=== PATIENT | female | born 1965 | race Caucasian/White ===

== ENCOUNTER 2018-06-04 07:59 | Day surgery (SDC) | payer BC ==
[~2018-06-04] VITALS: Ht 160 cm; Wt 106.8 kg
[~2018-06-04 07:59] MED LIST: AMLO10TA5 PO; ASPI81TA85 PO; BACITRACIN PWD 50,000 UNITS VIAL As Ordered ONE; BUPIVACAINE HCL 0.5% 30 ML VIAL As Ordered ONE; CELE100C PO; FLUO10CA8 PO; FLUO20CA8 PO; HUMI40KI SC; HYDR-3363 PO; HYDR200T3 PO; LIDOCAINE 2% MDV 20 ML VIAL As Ordered ONE; LR 1,000 ML IV ONE; METO1TAB87 PO; NEOSPORIN GU IRRIG 20 ML VIAL As Ordered ONE; PROTPAK PO; VANCOMYCIN HCL 1,000 MG, VIAL MATE ADAPTER 1 EACH in D5W 250 ML IV ONE; VITA50005 PO; dexameTHASONE 4 MG/ML 1ML VIAL (J1100) As Ordered ONE
[2018-06-04] MEDS ORDERED: dexameTHASONE 4 MG/ML 1ML VIAL (J1100) As Ordered ONE (08:07)
[2018-06-04] MEDS ORDERED: LIDOCAINE 2% INJ 100 MG/5 ML SDV (FOR ANES.) As Ordered ONE (08:07)
[2018-06-04] MEDS ORDERED: fentaNYL 100 MCG/2 ML INJECTION (J3010) As Ordered ONE (08:07)
[2018-06-04] MEDS ORDERED: PROPOFOL 500 MG/50 ML VIAL As Ordered ONE (08:07)
[2018-06-04] MEDS ORDERED: MIDAZOLAM INJ 2 MG/2 ML VIAL (J2250) As Ordered ONE (08:07)
[2018-06-04] MEDS ORDERED: ONDANSETRON 4MG/2ML VIAL (J2405) As Ordered ONE (08:07)
[2018-06-04] MEDS ORDERED: ePHEDrine SULFATE 25 MG/5 ML(5MG/ML) SYRINGE As Ordered ONE (10:52)
[2018-06-04] MEDS ORDERED: ONDANSETRON 4MG/2ML VIAL (J2405) IV PRN (12:00)
[2018-06-04] MEDS ORDERED: LR 1,000 ML IV SCH (12:00)
[2018-06-04] MEDS ORDERED: METOCLOPRAMIDE INJ 10MG/2ML VIAL (J2765) IV PRN (12:00)
[2018-06-04] MEDS ORDERED: fentaNYL 100 MCG/2 ML INJECTION (J3010) IV PRN (12:00)
[2018-06-04] MEDS ORDERED: PERCOCET 5MG/325MG TAB PO PRN (12:00)
[2018-06-04 12:10] VITALS: BP 130/74
--- NOTE | 2018-06-04 13:11 | REP ---
LEFT FOOT, THREE VIEWS: HISTORY: Hammertoe 2nd digit. The patient is status post arthroplasty of the 2nd digit and osteotomy of the head of the 2nd metatarsal. Metal hardware is present. There is no acute fracture or dislocation. The joint spaces are normal in appearance. IMPRESSION: Postoperative change, as described above. There is anatomic alignment. Electronically Signed by Izaiah Dent MD 06/04/2018 01:13 P
--- NOTE | 2018-06-05 10:24 | RO ---
DATE OF PROCEDURE: 06/04/2018 PREOPERATIVE DIAGNOSIS: Hammertoe deformity 2nd toe left foot, long 2nd metatarsal left foot. SURGEON: Dr. Junior Breaux DPM. STATIONARY STEAM ENGINEER: None. ANESTHESIA: Local MAC. IRRIGATION: Dilute Bacitracin, neomycin and polymyxin B solution. PROCEDURES PERFORMED: 1. Proximal interphalangeal joint arthroplasty with external wire fixation 0.045 times one 2nd toe left foot. 2. Shortening 2nd metatarsal osteotomy with internal screw fixation, 2.4 mm x 12 mm headed cannulated screw left foot. HEMOSTASIS: Ankle pneumatic tourniquet at 200 mmHg for 25 minutes. DESCRIPTION OF OPERATION: On 06/04/2018 this 53-year-old white female was taken from her hospital room to the operating room and placed on the operating room table in the supine position. Following the induction of IV sedation and local regional anesthesia the left lower extremity was prepped and draped in the usual fashion. Attention was directed to the patient's 2nd toe where the following procedure was performed: PROXIMAL INTERPHALANGEAL JOINT ARTHROPLASTY 2ND TOE LEFT FOOT: Attention was directed to the patient's 2nd toe. There is noted to be a linear cicatrix over the 2nd toe. An incision was placed right through the cicatrix measuring approximately 2 cm in length. The incision was deepened to the subcutaneous tissues and all crossing contributories were identified, underscored and electrocoagulated. Dissection was carried down to the extensor tendon where a transverse tenotomy and capsulotomy was performed. The extensor tendon was retracted in a proximal direction. There was a malunion at the proximal interphalangeal joint. This was dissected free and the area of the malunion was osteotomized from dorsal to plantar through the union site and through the area of the cartilage of the base of the middle phalanx. Utilizing a Ade wire, the wire was driven through the middle and distal phalanx and retrograde into the proximal phalanx. The 2nd metatarsal was noted to be in a long position therefore the following procedure was performed: SHORTENING 2ND METATARSAL OSTEOTOMY AND INTERNAL SCREW FIXATION, 2.4 MM TIMES 12 MM TIMES ONE LEFT FOOT: Attention was direct to the patient's foot and the incision was lengthened in a Z-type fashion across the metatarsal phalangeal joint, transverse capsulotomy was performed to the metatarsal phalangeal joint and the joint was entered. A Vazquez osteotomy was then performed parallel to the surface of the foot and the capital fragment was shortened approximately 2 mm and transposed in a medial direction and fixated with a 2.4 x 12 mm cannulated screw. The medial aspect of the 2nd metatarsal phalangeal joint was released and the lateral side of the 2nd metatarsal phalangeal joint was reefed with 2-0 Monocryl in a simple interrupted type fashion. The wound was flushed with copious amounts of dilate bacitracin, neomycin and polymyxin B solution. The extensor tendon was coapted and maintained utilizing 4-0 braided Nylon loop suture with a 4-stranded Noriega repair. Subcutaneous tissues were coapted and maintained using 4-0 Monocryl in a simple interrupted type fashion. Skin was coapted and maintained using 4-0 Prolene in a simple interrupted and horizontal mattress type fashion. Following the completion of the surgical procedure 4 mg of Dexamethasone sodium phosphate was instilled proximal surgical site. Attention was directed to bandaging where a sterile compressive bandage was applied consisting of Adaptic 4x4, 4x4 splints, Kerlix and Coban. Ankle pneumatic tourniquet was rapidly deflated and instantaneous capillary filling time was noted in digits in 1-5 of the patient's left foot. After having apparently tolerating the procedure well was taken from the OR to the recovery room for further monitoring by the anesthesia department. Postoperative instruction upon discharge.
== END 2018-06-04 12:48 | disposition home or self-care (01) ==
LOC: M SDC 07:59
PROVIDERS: ATTEND Podiatrist
DX: M20.42 Other hammer toe(s) (acquired), left foot (principal); M20.5X2 Other deformities of toe(s) (acquired), left foot; M79.672 Pain in left foot; I10 Essential (primary) hypertension; K21.9 Gastro-esophageal reflux disease without esophagitis; Z79.899 Other long term (current) drug therapy; Z88.0 Allergy status to penicillin; Z88.5 Allergy status to narcotic agent
CPT/HCPCS: 28285; 28308; 73630; 88300; C1713; J1100; J2250; J2405; J3010; J3370

== ENCOUNTER 2018-07-14 11:25 | Emergency (ER) | payer BC ==
[~2018-07-14] VITALS: Ht 160 cm; Wt 108.8 kg
[~2018-07-14 11:25] MED LIST changes: -BACITRACIN PWD 50,000 UNITS VIAL As Ordered ONE; -BUPIVACAINE HCL 0.5% 30 ML VIAL As Ordered ONE; -LIDOCAINE 2% MDV 20 ML VIAL As Ordered ONE; -LR 1,000 ML IV ONE; -NEOSPORIN GU IRRIG 20 ML VIAL As Ordered ONE; -VANCOMYCIN HCL 1,000 MG, VIAL MATE ADAPTER 1 EACH in D5W 250 ML IV ONE; -dexameTHASONE 4 MG/ML 1ML VIAL (J1100) As Ordered ONE
[2018-07-14] MEDS ORDERED: KEFL500C17 PO (11:34)
[2018-07-14] MEDS ORDERED: NS 1,000 ML IV ONE (12:00)
[2018-07-14 12:30] LABS: BASO % 0.9 % (0.0-1.0); EOS # 0.3 10^3/uL (0.0-0.50); EOS % 7.9 % (0.0-3.0); HEMATOCRIT 40.7 % (36.0-47.0); HEMOGLOBIN 13.2 g/dl (12.0-15.5); LYMPH % 46.7 % (24.0-44.0); MEAN CORPUSCULAR HEMOGLOBIN 28.8 pg (27.0-33.0); MEAN CORPUSCULAR HGB CONC 32.4 g/dl (32.0-36.5); MEAN CORPUSCULAR VOLUME 88.7 fl (80.0-96.0); MONO # 0.5 10^3/uL (0.0-0.8); MONO % 11.3 % (0.0-5.0); NEUTROPHILS # 1.4 10^3/uL (1.8-7.7); NEUTROPHILS % 33.2 % (36.0-66.0); PLATELET COUNT, AUTOMATED 193 10^3/uL (150-450); RED BLOOD COUNT 4.59 10^6/uL (4.00-5.40); WHITE BLOOD COUNT 4.3 10^3/uL (4.0-10.0)
--- NOTE | 2018-07-14 12:35 | REP ---
LEFT FOOT, FOUR VIEWS: HISTORY: Erythema. COMPARISON: 06/04/2018 The patient is status post osteotomy of the second metatarsal. A metal pin is present. The patient is status post removal of a pin from the second digit and resection of the distal 2nd proximal phalange. There is no acute fracture or dislocation. There is minimal narrowing of the 1st metatarsal joint space. IMPRESSION: There is no acute fracture or dislocation. Electronically Signed by Izaiah Dent MD 07/14/2018 12:38 P
[2018-07-14 12:50] LABS: BLOOD UREA NITROGEN 21 MG/DL (7-18); C REACTIVE PROTEIN QUANTITATIV < 0.30 MG/DL (0.00-0.30); CALCIUM LEVEL 8.3 MG/DL (8.5-10.1); CARBON DIOXIDE LEVEL 23 MEQ/L (21-32); CHLORIDE LEVEL 116 MEQ/L (98-107); CREATININE FOR GFR 0.97 MG/DL (0.55-1.30); GLOMERULAR FILTRATION RATE > 60.0 (>51); GLUCOSE, FASTING 83 MG/DL (70-100); POTASSIUM SERUM 4.3 MEQ/L (3.5-5.1); SODIUM LEVEL 143 MEQ/L (136-145)
[2018-07-14 13:20] LABS: ERYTHROCYTE SEDIMENTATION RATE 6 mm/hr (0-30)
[2018-07-14] MEDS ORDERED: VANCOMYCIN HCL 1,000 MG, VIAL MATE ADAPTER 1 EACH in D5W 250 ML IV ONE (13:30)
[2018-07-14] MEDS ORDERED: BACT800T5 PO (14:02)
[2018-07-14 15:16] VITALS: BP 137/75
== END 2018-07-14 15:23 | disposition home or self-care (01) ==
LOC: M ED 11:25
DX: T81.9XXA Unspecified complication of procedure, initial encounter (principal); Y92.9 Unspecified place or not applicable; Y93.9 Activity, unspecified; I10 Essential (primary) hypertension; R51 Headache; G47.30 Sleep apnea, unspecified; F41.9 Anxiety disorder, unspecified; Z79.82 Long term (current) use of aspirin; Z79.899 Other long term (current) drug therapy; Z88.0 Allergy status to penicillin; Z88.5 Allergy status to narcotic agent
CPT/HCPCS: 73630; 80048; 83605; 85025; 85652; 86140; 87040; 87070; 87077; 87186; 87205; 96365; 96366; 99284; J3370

== ENCOUNTER 2019-09-29 08:51 | Day surgery (SDC) | payer BC ==
[~2019-09-29] VITALS: Ht 160 cm; Wt 108.1 kg
[~2019-09-29 08:51] MED LIST changes: -AMLO10TA5 PO; +AMLO1TAB25 PO; -ASPI81TA85 PO; +ASPI81TA86 PO; +BACT800T5 PO; +COSE1INJ SC; +CYCL-707 PO; +FLUO10CA16 PO; -FLUO10CA8 PO; +FLUO20CA20 PO; -FLUO20CA8 PO; +FOLI1TAB11 PO; +FURO40TA2 PO; +GABA600T4 PO; +KEFL500C17 PO; +LIDOCAINE 2% 100MG/5ML SDV (FOR ANES.) As Ordered ONE; +NS 1,000 ML IV ONE; +POTA1TAB14 PO; +propofoL 200 MG/20 ML VIAL As Ordered ONE
[2019-09-29] MEDS ORDERED: propofoL 200 MG/20 ML VIAL As Ordered ONE (09:57)
--- NOTE | 2019-09-29 10:01 | ROOR ---
Patient Name: Nathaniel Mcgraw Procedure Date: 09/29/2019 9:31 AM Date of : 1965 Age: 54 Room: [facility] Gender: Female Note Status: Finalized Procedure: Colonoscopy Indications: High risk colon cancer surveillance: Personal history of colonic polyps Providers: Elmo Huber Jr, MD Referring MD: Jesus Wilson MD Requesting Provider: Medicines: Propofol per Anesthesia Complications: No immediate complications. Procedure: Pre-Anesthesia Assessment: - Prior to the procedure, a History and Physical was performed, and patient medications and allergies were reviewed. The patient is competent. The risks and benefits of the procedure and the sedation options and risks were discussed with the patient. All questions were answered and informed consent was obtained. Patient identification and proposed procedure were verified by the physician and the nurse in the pre-procedure area and in the procedure room. Mental Status Examination: alert and oriented. Airway Examination: normal oropharyngeal airway and neck mobility. Respiratory Examination: clear to auscultation. CV Examination: normal. ASA Grade Assessment: II - A patient with mild systemic disease. After reviewing the risks and benefits, the patient was deemed in satisfactory condition to undergo the procedure. The anesthesia plan was to use moderate sedation / analgesia (conscious sedation). Immediately prior to administration of medications, the patient was re-assessed for adequacy to receive sedatives. The heart rate, respiratory rate, oxygen saturations, blood pressure, adequacy of pulmonary ventilation, and response to care were monitored throughout the procedure. The physical status of the patient was re-assessed after the procedure. The Colonoscope was introduced through the anus and advanced to the cecum, identified by appendiceal orifice and ileocecal valve. The colonoscopy was performed without difficulty. The patient tolerated the procedure well. The quality of the bowel preparation was adequate. Findings: The rectum, recto-sigmoid colon, sigmoid colon, descending colon, transverse colon, ascending colon, cecum, appendiceal orifice and ileocecal valve appeared normal. Impression: - The rectum, recto-sigmoid colon, sigmoid colon, descending colon, transverse colon, ascending colon, cecum, appendiceal orifice and ileocecal valve are normal. - No specimens collected. Recommendation: - Discharge patient to home (ambulatory). - Repeat colonoscopy in 10 years for screening purposes. Elmo Huber MD Elmo Huber Jr, MD 09/29/2019 10:00:40 AM Electronically signed by Elmo Huber Jr, MD Number of Addenda: 0 Note Initiated On: 09/29/2019 9:31 AM Estimated Blood Loss: Estimated blood loss: none.
[2019-09-29 10:43] VITALS: BP 111/53
== END 2019-09-29 10:37 | disposition home or self-care (01) ==
LOC: M OPP 08:51
PROVIDERS: ATTEND Surgery
DX: Z12.11 Encounter for screening for malignant neoplasm of colon (principal); Z86.010 Personal history of colon polyps; G47.30 Sleep apnea, unspecified; K21.9 Gastro-esophageal reflux disease without esophagitis; M79.7 Fibromyalgia; Z79.82 Long term (current) use of aspirin; Z79.899 Other long term (current) drug therapy; Z88.0 Allergy status to penicillin; Z88.5 Allergy status to narcotic agent

== ENCOUNTER 2020-03-24 09:34 | Emergency (ER) | payer BC ==
[~2020-03-24] VITALS: Ht 157.5 cm; Wt 109.9 kg
[~2020-03-24 09:34] MED LIST changes: -LIDOCAINE 2% 100MG/5ML SDV (FOR ANES.) As Ordered ONE; -NS 1,000 ML IV ONE; -propofoL 200 MG/20 ML VIAL As Ordered ONE
[2020-03-24 10:53] LABS: BASO % 0.7 % (0.0-1.0); EOS # 0.2 10^3/uL (0.0-0.5); EOS % 6.1 % (0.0-3.0); HEMATOCRIT 37.1 % (36.0-47.0); HEMOGLOBIN 11.2 g/dl (12.0-15.5); LYMPH # 1.3 10^3/uL (1.5-5.0); LYMPH % 43.6 % (24.0-44.0); MEAN CORPUSCULAR HEMOGLOBIN 26.2 pg (27.0-33.0); MEAN CORPUSCULAR HGB CONC 30.2 g/dl (32.0-36.5); MEAN CORPUSCULAR VOLUME 86.7 fl (80.0-96.0); MONO # 0.5 10^3/uL (0.0-0.8); MONO % 17.6 % (0.0-5.0); NEUTROPHILS % 31.7 % (36.0-66.0); PLATELET COUNT, AUTOMATED 186 10^3/uL (150-450); RED BLOOD COUNT 4.28 10^6/uL (4.00-5.40)
[2020-03-24 11:19] LABS: CALCIUM LEVEL 8.7 MG/DL (8.5-10.1); CREATININE FOR GFR 1.08 MG/DL (0.55-1.30); GLOMERULAR FILTRATION RATE 56.1 (>51); POTASSIUM SERUM 5.3 MEQ/L (3.5-5.1)
[2020-03-24 11:24] LABS: NEUTROPHILS # 0.9 10^3/uL (1.5-8.5)
--- NOTE | 2020-03-24 11:33 | REP ---
INDICATION: elevate cr, recurrent uti COMPARISON: 04/13/2007 TECHNIQUE: Real time robles scale ultrasound examination using curved array transducer. FINDINGS: The kidneys are normal in reniform shape and demonstrate increased central sinus fat suggesting chronic renal disease without hydronephrosis, nephrolithiasis, cystic or renal mass lesion. No perinephric fluid collection. Right kidney measures 9.6 x 4.2 x 4.8 cm. Left kidney measures 10.2 x 3.8 x 4.9 cm. Bladder is collapsed. IMPRESSION: 1. Findings suggesting chronic renal disease. 2. No hydronephrosis. <Electronically signed by Chaitanya Hagan > 03/24/20 [id number]
[2020-03-24 12:42] VITALS: BP 130/60
== END 2020-03-24 12:45 | disposition home or self-care (01) ==
LOC: M ED 09:34
DX: R30.0 Dysuria (principal); R93.429 Abnormal radiologic findings on diagnostic imaging of unspecified kidney; Z98.84 Bariatric surgery status; Z88.0 Allergy status to penicillin; Z88.6 Allergy status to analgesic agent

== ENCOUNTER → 2020-04-18 | Outpatient (REF) | payer BC ==
[2020-04-18 17:41] LABS: FERRITIN 7 NG/ML (8-252); IRON (FE) 39 UG/DL (50-170); PERCENT SATURATION 8.7 % (13.2-45.0); TOTAL IRON BINDING CAPACITY 446 UG/DL (250-450)
[2020-04-18 17:45] LABS: VITAMIN B12 LEVEL 283 PG/ML
[2020-04-18 17:46] LABS: FOLATE > 24.0 NG/ML
== END ==
LOC: M LAB REF 16:46
PROVIDERS: ATTEND Internal Medicine Nephrology
DX: D64.9 Anemia, unspecified (principal)

== ENCOUNTER 2020-04-25 07:37 | Outpatient (CLI) | payer BC ==
[~2020-04-25] VITALS: Ht 160 cm; Wt 112.0 kg
[~2020-04-25 07:37] MED LIST changes: +ALBUTEROL SULFATE 2.5 MG/0.5 ML INH NEB SOLN INH PRN; +EPINEPHrine INJ 1 MG/ML 1ML AMP IM PRN; +diphenhydrAMINE 50MG/ML VIAL (J1200) IV PRN; +methylPREDNISolone 125MG 2ML VIAL IV PRN
[2020-04-25 07:44] VITALS: BP 130/60
[2020-04-25 08:30] VITALS: BP 113/53
[2020-04-25] MEDS ORDERED: NS 1,000 ML IV SCH (08:30)
[2020-04-25] MEDS ORDERED: diphenhydrAMINE 50MG/ML VIAL (J1200) IV ONE (08:30)
[2020-04-25] MEDS ORDERED: FERRIC CARBOXYMALTOSE INJ 750 MG, VIAL MATE ADAPTER 1 EACH in NS 250 ML IV ONE (08:30)
[2020-04-25 09:30] VITALS: BP 113/69
[2020-04-25 10:15] VITALS: BP 118/71
[2020-04-25 10:30] VITALS: BP 123/79
== END 2020-04-25 10:30 | disposition home or self-care (01) ==
LOC: M INFU 07:37
PROVIDERS: ATTEND Internal Medicine Nephrology
DX: D64.9 Anemia, unspecified (principal); Z88.0 Allergy status to penicillin; Z88.6 Allergy status to analgesic agent
CPT/HCPCS: 96365; 96366; 96375; J1200; J1439

== ENCOUNTER 2020-05-02 12:28 | Outpatient (CLI) | payer BC ==
[~2020-05-02] VITALS: Ht 160 cm; Wt 110.0 kg
[~2020-05-02 12:28] MED LIST changes: +NS 1,000 ML IV SCH; +diphenhydrAMINE 50MG/ML VIAL (J1200) IV ONE
[2020-05-02 12:45] VITALS: BP_SYST 113; BP_SYST 120; BP_DIAS 61; BP_DIAS 67
[2020-05-02] MEDS ORDERED: FERRIC CARBOXYMALTOSE INJ 750 MG, VIAL MATE ADAPTER 1 EACH in NS 250 ML IV ONE (13:00)
[2020-05-02 14:10] VITALS: BP 98/57
[2020-05-02 15:00] VITALS: BP 110/67
== END 2020-05-02 15:00 | disposition home or self-care (01) ==
LOC: M INFU 12:28
PROVIDERS: ATTEND Internal Medicine Nephrology
DX: D64.9 Anemia, unspecified (principal); Z88.0 Allergy status to penicillin; Z88.6 Allergy status to analgesic agent; Z91.048 Other nonmedicinal substance allergy status
CPT/HCPCS: 96365; 96375; J1200; J1439

== ENCOUNTER → 2020-12-19 | Outpatient (REF) | payer BC ==
[~2020-12-19] MED LIST changes: -ALBUTEROL SULFATE 2.5 MG/0.5 ML INH NEB SOLN INH PRN; -EPINEPHrine INJ 1 MG/ML 1ML AMP IM PRN; +ERGO500029 PO; -NS 1,000 ML IV SCH; -diphenhydrAMINE 50MG/ML VIAL (J1200) IV ONE; -diphenhydrAMINE 50MG/ML VIAL (J1200) IV PRN; -methylPREDNISolone 125MG 2ML VIAL IV PRN
[2020-12-19 17:44] LABS: BACTERIA, URINE AUTO NEGATIVE (NEGATIVE); RBC, URINE AUTO 1 /HPF (0-3); SQUAMOUS EPITHELIAL CELL UR AU 0 /HPF (0-6); WBC, URINE AUTO 0 /HPF (0-3)
== END ==
LOC: M LAB REF 16:59
PROVIDERS: ATTEND Internal Medicine Nephrology
DX: N18.31 Chronic kidney disease, stage 3a (principal)

== ENCOUNTER → 2021-10-03 | Outpatient (CLI) | payer OTHER, BC ==
[~2021-10-03] MED LIST changes: +FLUO-96 PO; -FLUO10CA16 PO; +FLUO10CA18 PO; -FLUO20CA20 PO
== END ==
LOC: M PLAIMG 13:10
PROVIDERS: ATTEND Internal Medicine
DX: M50.10 Cervical disc disorder with radiculopathy, unspecified cervical region (principal); M47.24 Other spondylosis with radiculopathy, thoracic region; M54.40 Lumbago with sciatica, unspecified side

== ENCOUNTER → 2022-07-16 | Outpatient (REF) | payer OTHER, BC ==
[~2022-07-16] MED LIST changes: +POTA-298 PO; -POTA1TAB14 PO
[2022-07-16 18:47] LABS: THYROXINE (T4) 8.2 UG/DL (4.5-10.9)
[2022-07-16 18:48] LABS: T UPTAKE 36.3 % (22.5-37.0); THYROID STIMULATING HORMONE 2.923 uIU/ML (0.55-4.78)
== END ==
LOC: M LAB REF 17:24
PROVIDERS: ATTEND Nurse Practitioner Family
DX: E03.9 Hypothyroidism, unspecified (principal)

== ENCOUNTER → 2022-09-04 | Outpatient (REF) | payer OTHER, BC ==
[~2022-09-04] MED LIST changes: -HYDR200T3 PO; +HYDR200T46 PO
[2022-09-04 13:31] LABS: PERCENT SATURATION 24.7 % (13.2-45.0)
[2022-09-04 13:33] LABS: FERRITIN 50.3 NG/ML (7.3-270.7)
== END ==
LOC: M LAB REF 12:22
PROVIDERS: ATTEND Internal Medicine
DX: Z98.84 Bariatric surgery status (principal); D50.9 Iron deficiency anemia, unspecified

== ENCOUNTER → 2023-08-12 | Outpatient (REF) | payer OTHER, BC ==
[~2023-08-12] MED LIST changes: +FLUO-290 PO; -FLUO10CA18 PO
[2023-08-13 17:40] LABS: BACTERIA, URINE AUTO NEGATIVE (NEGATIVE); CALCIUM OXALATE CRYSTALS SMALL; RBC, URINE AUTO 0 /HPF (0-3); SQUAMOUS EPITHELIAL CELL UR AU 0 /HPF (0-6); WBC, URINE AUTO 0 /HPF (0-3)
== END ==
LOC: M LAB REF 17:05
PROVIDERS: ATTEND Nurse Practitioner Family
DX: R31.29 Other microscopic hematuria (principal)

== ENCOUNTER → 2023-09-21 | Outpatient (REF) | payer BC | LOC: M LAB REF 16:30 | PROVIDERS: ATTEND Internal Medicine | DX: N39.0 Urinary tract infection, site not specified (principal) ==

== ENCOUNTER → 2023-12-18 | Outpatient (CLI) | payer BC ==
[~2023-12-18] MED LIST changes: +GABA-1490 PO; -GABA600T4 PO
== END ==
LOC: M WHC 13:34
PROVIDERS: ATTEND Nurse Practitioner Family
DX: N18.31 Chronic kidney disease, stage 3a (principal)

== ENCOUNTER → 2024-04-20 | Outpatient (REF) | payer BC ==
[2024-04-20 17:14] LABS: C REACTIVE PROTEIN QUANTITATIV < 0.50 MG/DL (<1.0); IRON (FE) 39 UG/DL (50-170); PERCENT SATURATION 13.3 % (13.2-45.0); TOTAL IRON BINDING CAPACITY 294 UG/DL (250-425)
[2024-04-20 17:16] LABS: FERRITIN 75.6 NG/ML (7.3-270.7)
== END ==
LOC: M LAB REF 16:14
PROVIDERS: ATTEND Internal Medicine
DX: Z51.81 Encounter for therapeutic drug level monitoring (principal); D50.9 Iron deficiency anemia, unspecified